=== PATIENT | male | born 1970 | race Caucasian/White ===

== ENCOUNTER 2022-05-17 09:20 | Outpatient (CLI) | payer OTHER ==
[2022-05-17 09:53] VITALS: BP 121/84
--- NOTE | 2022-05-17 09:53 | SLEEP CARE CONSULTATION ---
Information from patient questionnaire entered by Jazmin Mcmanus MA. I have reviewed and concur with the information entered by Jazmin Mcmanus MA. This document represents the service I personally performed and the decisions made by , Maegan Gomes ARNP. History of Present Illness Service Date and Time: 05/17/2022 0920 Reason for Visit: New patient (LAST SEEN 03/2015, NON CPAP USER) Chief Complaint: reports: Unrefreshed sleep, Snoring, Observed pauses in breathing, Fatigue Date of Onset: 2-3 months Usual bedtime: 9:30-10 PM Time it takes to fall asleep: about 5 minutes Snores at night: Yes Observed to quit breathing while asleep: Yes Sleeps alone due to snoring: No Number of times waking at night: once Reasons for waking at night: reports: Other (heat). denies: Choking, Snoring, Gasping for air Toss, Turn, or Twitch while sleeping: Yes Recalls having dreams: No Usually gets out of bed at: 0400 Feels refreshed in the morning: No Morning headache: No Sleepy or fatigued during the day: Yes Ever fallen asleep while driving: No Takes day naps: Yes (2 times a week; 15-20 minutes long) Dreams during day naps: No Prior sleep studies: Yes Year and Where: [facility] 2014 Additional HPI information: I had the pleasure of seeing HOLLY ARAUJO today regarding the possibility of him having a sleep disorder. His current complaints are fatigue, tired during the daytime, unrefreshed sleep, snoring and observed pauses in breathing. He states he normally is a morning person but recently things have changed to this daytime fatigue. He states he does not snore all the time and his has only noted a handful of times that he has stopped breathing and then gasped in his sleep. He states this fatigue developed about 2-3 months ago but he does not remember any precipitating event such as illness or stressful situation. He has had a sleep study in the past but was not diagnosed with sleep disordered breathing. 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 Patient is and lives in [place]. Have you smoked in the past 12 months: No Cigarettes per day (20/pack): 30 Years of smokin Quit date: 2009 Smoking Pack Years: 37.5 Alcohol use: No Caffeine use: Yes Caffeine amount and frequency: 2-3 daily Family History Family history of sleep disordered breathing: No Allergies and Home Medications Drug allergies reviewed: Yes (NKDA) Allergy and home medication list: Medications: Advair OTC antihistamine, prn Melatonin 5 mg, prn (2 times a week avg) Review of Systems Cardiovascular: denies: high blood pressure Respiratory: reports: shortness of breath Gastrointestinal: denies: heartburn Neurological: denies: headaches Psychiatric: denies: anxiety, depression Ear/Nose/Throat: reports: wisdom teeth removed. denies: tonsillectomy Endocrine: reports: sluggishness Immunologic: reports: allergies to food or environment (cats) Physical Exam Vital signs obtained and entered by: TERRANCE CAMPBELL Blood Pressure: 121/84 (RR 18) Cuff size: wrist (left) Heart Rate: 77 O2 Saturation: 97 Height: 5 ft 9 in Weight: 214 lb Body Mass Index: 31.6 BMI Classification: Obese Neck circumference: 14.5 (inches) Mouth and throat: narrow oropharynx Soft palate: normal Hard palate: normal Uvula: normal Uvula visualization: 25% Mallampati Class III Tongue: normal in size Tonsils: small Neck: normal w/o lymphadenopathy or thyromegaly Heart: regular rate and rhythm Lungs: clear bilaterally Impression and Plan 1. Suspected Obstructive Sleep Apnea-Hypopnea Syndrome, as suggested by a history of loud and irregular snoring, observed cessation of breath while asleep, gasping or choking in sleep, unrefreshed sleep and cognitive impairment. Narrow oropharynx and obesity are common predisposing factors for obstructive sleep apnea-hypopnea syndrome. I recommend proceeding to polysomnography to confirm the diagnosis and to assess severity. If the patient has significant sleep disordered breathing, a manual CPAP titration study will also be performed to find the optimal treatment pressure. I informed the patient of what the sleep studies involve and after some discussion, obtained agreement to proceed. The pathophysiology of obstructive sleep apnea-hypopnea syndrome was discussed with the patient and health risks of cardiovascular and cerebrovascular disease if not treated. Risks of drowsy driving discussed in detail and patient advised to avoid long distance driving and to tub puller at the first sign of drowsiness. Patient agreed to plan. * Schedule polysomnography * Avoid long distance driving or driving when feeling sleepy. * Avoid alcohol, sedative and muscle relaxant around bedtime. * Attempt to lose weight. * Review instructions provided by trained office staff on how to prepare for the sleep study. * Return for follow-up after sleep study completed. Counseling Topics: Weight loss health impact Visit Type: In Office Time Spent with Patient (minutes): 32 Provider Statement: I spent 100% of the Face to Face Visit with the patient with greater than 50% spent counseling the patient and coordination of care.
== END 2022-05-17 09:21 | disposition home or self-care (01) ==
LOC: SC 09:20
PROVIDERS: ATTEND Nurse Practitioner Family
DX: R06.83 Snoring (principal); G47.8 Other sleep disorders; R06.81 Apnea, not elsewhere classified; R53.83 Other fatigue; E66.9 Obesity, unspecified; Z68.31 Body mass index [BMI] 31.0-31.9, adult; Z87.891 Personal history of nicotine dependence
CPT/HCPCS: 99203; 99212

== ENCOUNTER 2022-06-19 20:07 | Outpatient (CLI) | payer OTHER | END 2022-06-19 20:08 | disposition home or self-care (01) | LOC: SC 20:07 | PROVIDERS: ATTEND Nurse Practitioner Family | DX: R06.83 Snoring (principal); G47.8 Other sleep disorders; R06.81 Apnea, not elsewhere classified; R53.83 Other fatigue | CPT/HCPCS: 95810 ==

== ENCOUNTER 2022-07-03 14:35 | Outpatient (CLI) | payer OTHER ==
--- NOTE | 2022-07-03 15:19 | SLEEP CARE CONSULTATION ---
Information from patient questionnaire entered by Lakesha Durand. I have reviewed and concur with the information entered by Lakesha Durand. This document represents the service I personally performed and the decisions made by , Maegan Gomes ARNP. History of Present Illness Service Date and Time: 07/03/2022 1435 Initial [place] Sleepiness Scale score: 10 (05/2022) Current [place] Sleepiness Scale score: 9 (07/03/2022) Additional HPI information: HOLLY ARAUJO returns for follow up and results of the recently performed polysomnography. The patient was informed of the following findings: No significant sleep disordered breathing with an average AHI of 3.5 and trista oxygen saturation of 86%. I explained the pathophysiology behind obstructive sleep apnea. Patient does not have sleep apnea and was advised how weight gain could increase the risk of developing sleep apnea in the future. I strongly encouraged the patient to lose weight. Patient does not have significant sleep disordered breathing but has elevated AHI in supine position so advised positional therapy. Methods to achieve positional management therapy were discussed; such as, positioning with pillows, wearing a T-shirt with tennis balls sewn into the back or commercially available products. Patient has light snoring. Snoring can be reduced by weight loss. Weight loss is best achieved with diet consult. Patient instructed to contact PCP for referral. Snoring can also be treated with an oral appliance from a dentist. Advised to check insurance coverage. In addition, an ENT evaluation can be do to see if other treatment is indicated. Patient was cautioned about risks of drowsy driving until sleepiness symptoms resolve. Sleep Study - Results Type of Sleep Study: Polysomnography (COMPLETED 06/19/2022) Prior sleep studies: Yes Year and Where: [facility] 2014 Polysomnography/Home Sleep Study results: IMPRESSION: The quality of the study is good. The patient had normal sleep efficiency. The sleep architecture was relatively normal. Respiratory monitoring showed no significant sleep disordered breathing (AHI = 3.5) or hypoxia (trista oxygen saturation of 86% and only 1.3% to the total sleep time was spent with oxygen saturation below 90%). The few respiratory events occurred almost exclusively during supine sleep (supine AHI = 7.8; nonsupine = 0.92). Snore was light in intensity. There was no significant periodic leg movement of sleep. Cardiac rhythm was normal sinus rhythm without significant arrhythmia. No abnormal behavior (parasomnia) observed during the night. CONCLUSIONS and RECOMMENDATIONS: 1. This is a normal in-laboratory polysomnography. However, because the supine AHI was elevated at 7.8, the patient should avoid sleeping supine. Allergies and Home Medications Drug allergies reviewed: Yes (NKDA) Home medication list reviewed: Yes (no changes) Review of Systems Review of systems same as previous: Yes (no changes) Physical Exam Vital signs obtained and entered by: LAKESHA Angelo MA Blood Pressure: 112/70 (Left Arm) Cuff size: regular Heart Rate: 89 O2 Saturation: 97 Height: 5 ft 9 in Weight: 209 lb 9.6 oz Body Mass Index: 30.9 BMI Classification: Obese Impression and Plan Snoring but no significant sleep disordered breathing. However, patient did have an elevated supine AHI 7.8 and should avoid sleeping supine. Patient advised that often weight loss will reduce snoring as well as apnea risk. An oral appliance can also be used for snoring. This would require a dental consultation. Patient cautioned not to use other online appliances as can cause bite issues. A list of accredited dentists in area and one local dentist who makes oral appliances given. Patient is advised to check if insurance will cover. An ENT consult can also be helpful to determine if any other treatment is an option. * Attempt to lose weight * Avoid alcohol consumption near bedtime * The patient is cautioned about driving until sleepiness is completely resolved. * Return as needed for follow up. Counseling Topics: Weight loss health impact Visit Type: In Office Time Spent with Patient (minutes): 10 Provider Statement: I spent 100% of the Face to Face Visit with the patient with greater than 50% spent counseling the patient and coordination of care.
[2022-07-03 15:20] VITALS: BP 112/70
== END 2022-07-03 14:36 | disposition home or self-care (01) ==
LOC: SC 14:35
PROVIDERS: ATTEND Nurse Practitioner Family
DX: R06.83 Snoring (principal); E66.9 Obesity, unspecified; Z68.30 Body mass index [BMI] 30.0-30.9, adult
CPT/HCPCS: 99212